=== PATIENT | male | born 1995 | race Caucasian/White ===

== ENCOUNTER 2017-06-02 13:23 | Emergency (ER) | payer OTHER ==
[2017-06-02 15:07] VITALS: BP 126/71
--- NOTE | 2017-06-02 15:52 | RAD ---
INDICATION: Right fourth and fifth metatarsal pain after a rock climbing fall one day earlier COMPARISON: None. TECHNIQUE: 3 views of the right foot were obtained. FINDINGS: Depicted best on the oblique plane image there is a longitudinally oriented slightly displaced fracture involving the proximal medial corner of the right small toe proximal phalanx. The fracture line extends to the articulating surface with the more proximal metatarsal head. The remaining visualized bones are intact and appropriately aligned. IMPRESSION: SLIGHTLY DISPLACED FRACTURE INVOLVING THE PROXIMAL RIGHT SMALL TOE PROXIMAL PHALANX DESCRIBED ABOVE.
--- NOTE | 2017-06-02 16:13 | UC ---
Lower Extremity/Ankle HPI - HPI Summary HPI Summary: fell about 15 foot while rock climbing yesterday-landing on right foot pain and bruising lateral aspect of distal foot - History of Current Complaint Chief Complaint: UCLowerExtremity Stated Complaint: FOOT INJURY Time Seen by Provider: 06/02/17 15:01 Hx Obtained From: Patient Onset/Duration: Sudden Onset, Lasting Days - 1 Severity Initially: Mild Severity Currently: Mild Pain Intensity: 3 Pain Scale Used: 0-10 Numeric Aggravating Factor(s): Standing, Ambulation Alleviating Factor(s): Rest, Elevation Able to Bear Weight: Yes - Allergies/Home Medications Allergies/Adverse Reactions: Allergies Allergy/AdvReac Type Severity Reaction Status Date / Time No Known Allergies Allergy Verified 06/02/17 15:07 Home Medications: Home Medications Ibuprofen TAB* [Advil TAB*] 800 mg PO ONCE PRN 06/02/17 [History Confirmed 06/02] PMH/Surg Hx/FS Hx/Imm Hx Previously Healthy: Yes - Surgical History Surgical History: Yes Surgery Procedure, Year, and Place: ADDENDOIDS AT AGE 12 - Family History Known Family History: Positive: None - Social History Occupation: Unemployed Lives: With Family Alcohol Use: Occasionally Substance Use Type: None Smoking Status (MU): Never Smoked Tobacco Review of Systems Constitutional: Negative Skin: Negative Eyes: Negative ENT: Negative Respiratory: Negative Cardiovascular: Negative Gastrointestinal: Negative Genitourinary: Negative Motor: Negative Neurovascular: Negative Musculoskeletal: Arthralgia - 5 toe right foot, Other: - bruising 4/5 toe right foot Neurological: Negative Psychological: Negative Is Patient Immunocompromised?: No All Other Systems Reviewed And Are Negative: Yes Physical Exam Triage Information Reviewed: Yes Appearance: Well-Appearing, No Pain Distress, Well-Nourished Vital Signs: Initial Vital Signs Temp 98.2 F 06/02/17 15:03 Pulse 75 06/02/17 15:03 Resp 16 06/02/17 15:03 BP 126/71 06/02/17 15:03 Pulse Ox 99 06/02/17 15:03 Vital Signs Reviewed: Yes Eye Exam: Normal Eyes: Positive: Conjunctiva Clear ENT Exam: Normal ENT: Positive: Normal ENT inspection, Hearing grossly normal. Negative: Pharynx normal, Nasal congestion, Nasal drainage, Trismus, Muffled/hoarse voice Dental Exam: Normal Neck exam: Normal Neck: Positive: Supple, Nontender, No Lymphadenopathy Respiratory Exam: Normal Respiratory: Positive: Chest non-tender, No respiratory distress, No accessory muscle use Cardiovascular Exam: Normal Cardiovascular: Positive: RRR, Pulses Normal, Brisk Capillary Refill Abdominal Exam: Normal Musculoskeletal Exam: Normal Musculoskeletal: Positive: Strength Intact, No Edema, ROM Limited @ Neurological Exam: Normal Neurological: Positive: Alert, Muscle Tone Normal Psychological Exam: Normal Skin Exam: Normal Diagnostics - Radiology No standard instances Xray Interpretation: Positive (See Comments) - slightly displaced proximal 5th phalange on right foot fracture Radiology Interpretation Completed By: ED Physician Lower Extremity Course/Dx - Course Course Of Treatment: refused cam boot, will try post op shoe, rice, ibuprofen follow with orthopedic MD this week - Differential Dx/Diagnosis Differential Diagnosis/HQI/PQRI: Contusion, Fracture (Closed), Sprain, Strain Provider Diagnoses: Slightly displaced fracture of proximal 5th toe right foot Discharge - Discharge Plan Condition: Stable Disposition: HOME Patient Education Materials: Ibuprofen (By mouth), Toe Fracture (ED), RICE Therapy (ED) Referrals: Trip Peraza MD [Medical Doctor] - 5 Days
== END 2017-06-02 16:27 | disposition home or self-care (01) ==
LOC: UCEAST 13:23
DX: S92.511A Displaced fracture of proximal phalanx of right lesser toe(s), initial encounter for closed fracture (principal); W17.81XA Fall down embankment (hill), initial encounter; Y93.31 Activity, mountain climbing, rock climbing and wall climbing; Y92.828 Other wilderness area as the place of occurrence of the external cause
CPT/HCPCS: 99212; G0463